=== PATIENT | female | born 1985 | race Caucasian/White ===

== ENCOUNTER 2020-03-19 07:57 | Emergency (ER) | payer SELFPAY ==
[2020-03-19 07:59] VITALS: BP 106/38; PULSE 59; RESP 18; O2SAT 100; BMI 20.5
[2020-03-19] MEDS: ondansetron 2 mg/ML SDV 2 mL 4 MG IVP (08:23)
[2020-03-19] MEDS: sodium chloride 0.9% 500 ML 999 ML IV (08:23)
[2020-03-19 08:26] LABS: Basophils # 0.1 10^3/uL (0.0-0.1); Eosinophils # 0.1 10^3/uL (0.0-0.8); Eosinophils % 1.6 %; Hematocrit 42.6 % (37.0-47.0); Hemoglobin 13.4 g/dL (11.5-15.3); Lymphocytes # 1.6 10^3/uL (0.8-4.8); Lymphocytes % 19.6 %; Mean Corpuscular HGB Conc 31.5 g/dL (30.0-36.0); Mean Corpuscular Hemoglobin 28.5 pg (28.0-34.0); Mean Corpuscular Volume 90.4 fL (81-99); Mean Platelet Volume 10.4 fL (7.4-10.4); Monocytes # 0.4 10^3/uL (0.2-0.9); Monocytes % 4.7 %; Neutrophils # 5.75 10^3/uL (1.8-7.7); Neutrophils % 72.7 %; Nucleated Red Blood Cells % 0 %; Platelet Count 242 10^3/cmm (130-400); Red Blood Count 4.71 10^6/uL (4.1-5.3); Red Cell Distribution Width 14.2 % (12.1-15.1); White Blood Count 7.9 10^3/uL (4.0-10.0)
[2020-03-19 08:41] LABS: Alanine Aminotransferase 12 U/L (0-33); Albumin Level 4.4 g/dL (3.5-5.2); Alkaline Phosphatase 47 IU/L (35-105); Anion Gap 15.8 (5-19); Aspartate Amino Transferase 14 U/L (0-32); Blood Urea Nitrogen 12 mg/dL (6-20); Carbon Dioxide 23 mmol/L (22-29); Chloride 103 mmol/L (98-107); Globulin 2.5 g/dL (1.3-4.6); Glomerular Filtration Rate 83.1 mL/min (90-130); Glucose 131 mg/dL (65-115); Lipase 23 U/L (13-60); Osmolality Calculated 288 mOsm/kg (285-295); Potassium 3.8 mmol/L (3.5-5.1); Sodium 138 mmol/L (136-145); Total Bilirubin 0.3 mg/dL (0.15-1.2); Total Protein 6.9 g/dL (6.6-8.7)
--- NOTE | 2020-03-19 09:05 | ED_ITS ---
HPI - Syncope General: Chief Complaint: Syncope Stated Complaint: Low Bp N/V Time Seen by Provider: 03/19/20 07:58 Source: patient Mode of arrival: ambulatory Limitations: no limitations History of Present Illness: HPI narrative: 34-year-old pleasant female presents to the emergency department due to near syncopal episode. 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 She did experience vomiting x1. She reports on her menstrual cycle, started yesterday, states going through approximately 1 pad every 2-3 hours. Reports menstrual pain, states took ibuprofen for the pain, she has history of syncopal episodes. Nursing staff became concerned as her blood pressure was low. MD complaint: felt faint and almost passed out Onset (ago): minute(s) (30) Prodromal symptoms: lightheaded, nausea/vomiting and other (hot flash) Witnessed: Yes - by Bystander Context: other (while working) Injuries sustained associated with event: none Associated symptoms: Reports abdominal pain (suprapubic), nausea, weakness and other (pelvic pain); Deny chest pain, fever(s), headache(s) or vertigo History: other (syncopal episodes) Treatments prior to arrival: none Review of Systems General: Reports: 10 or more systems reviewed and unremarkable except in HPI and below Const: Reports: chills and fatigue; Denies: fever(s), body aches, change in appetite, malaise or diaphoresis Eyes: Denies: blurry vision or eye redness ENMT: Denies: throat pain, dental pain or disequilibrium Card: Denies: chest pain, palpitations or irregular heart rhythm Resp: Denies: dyspnea, productive cough, non-productive cough or wheezing GI: Reports: abdominal pain (suprapubic), nausea and vomiting (x 1); Denies: early satiety, diarrhea or constipation : Denies: difficulty voiding or dysuria Musc: Denies: neck pain, back pain, joint pain or joint stiffness Skin/Breast: Denies: rash or pruritus Neuro: Denies: headache(s), numbness in extremities, weakness in extremities, sensory changes, difficulty walking, vertigo, confusion, behavioral changes or difficulty communicating thoughts Psych: Denies: anxiety, depression, irritability or difficulty concentrating [place]/Lymph: Denies: easy bruising PFSH ED PFSH: Medical History (Updated 03/19/20 @ 09:54 by RADHA Horton) Syncopal episodes Physical Exam Const: COMMON NORMALS: no acute distress, average body habitus, patient oriented x3, healthy appearing, alert and well nourished GENERAL APPEARANCE: cooperative, comfortable, well kempt, well developed and well hydrated; not anxious and not ill appearing NUTRITIONAL APPEARANCE: thin ORIENTATION/CONSCIOUSNESS: Yes awake, Yes oriented to person, Yes oriented to place and Yes oriented to time HENMT: COMMON NORMALS: normocephalic, atraumatic, Normal external nose present and moist oral mucous membranes HEAD & SCALP: normal to inspection, normocephalic and atraumatic FACE & SINUS: normal facial exam and face symmetric NOSE: Normal external nose present and No nasal polyps present THROAT: posterior oropharynx normal and uvula midline Eye: COMMON NORMALS: Equal, round and reactive pupils present and EOMs intact bilaterally GENERAL EYE: appearance normal, both eyes and all related structures ALIGNMENT: Yes alignment normal PERIORBITAL: periorbital findings normal EYELID: eyelids normal PUPIL: Yes Equal, round and reactive pupils present Neck/C-Spine: COMMON NORMALS: full ROM, no lymphadenopathy and supple GENERAL: Yes normal visual inspection and Yes trachea midline CERVICAL SPINE: Yes cervical ROM normal Lymph: LYMPHATIC: no lymphadenopathy noted Chest: COMMONS NORMALS: normal inspection of the chest and normal palpation of entire chest wall Resp: COMMON NORMALS: normal respiratory effort, No retractions, No use of accessory muscles and clear to auscultation bilaterally EFFORT & INSPECTION: Yes able to speak in complete sentences AUSCULTATION: clear to auscultation bilaterally Cardio: COMMON NORMALS: regular rate, regular rhythm, S1 normal heart sound present, S2 normal heart sound present and Peripheral pulses 2+ throughout RATE: regular rate RHYTHM: regular rhythm HEART SOUNDS: S1 normal heart sound present and S2 normal heart sound present PERIPHERAL PULSES: Peripheral pulses 2+ throughout GI: COMMON NORMALS: Soft to palpation and non-tender INSPECTION: Yes normal to inspection PALPATION: Yes Soft to palpation : COMMON NORMALS: Yes no CVA tenderness BLADDER/KIDNEY EXAM: Yes no CVA tenderness Back/Pelvis: COMMON NORMALS: no CVA tenderness and thoracic and lumbar spine normal to inspection Extremity: COMMON NORMALS: normal to inspection, full ROM and capillary refill normal GENERAL: Yes normal exam except as noted Neuro: COMMON NORMALS: patient oriented x3 and no focal motor deficits SENSORIUM/ORIENTATION: Yes alert, Yes oriented to person, Yes oriented to place and Yes oriented to time Psych: COMMON NORMALS: mental status grossly normal, Normal thought process present and cooperative APPEARANCE: Yes well kempt ACTIVITY/MOTOR BEHAVIOR: Yes appropriate eye contact THOUGHT PROCESS: Normal thought process present Skin: COMMON NORMALS: no rashes or lesions noted and turgor normal GENERAL SKIN EXAM: no rashes or lesions noted and turgor normal Course Vital Signs: Vital signs: Vital Signs Pulse Rate 59 L 03/19/20 07:59 Respiratory Rate 18 03/19/20 07:59 Blood Pressure 106/38 03/19/20 07:59 Pulse Oximetry 100 03/19/20 07:59 MDM - Syncope MDM Narrative: Medical decision making narrative: 34-year-old female patient presents to the emergency department with near syncopal episode that occurred this morning while at work. Initial blood pressure reading 106/38, heart rate 59. EKG with sinus bradycardia, no ectopy/ST deviation. CBC without anemia or leukocytosis, lipase normal, urinalysis without white blood cells or bacteria, currently on menstrual cycle which would explain hematuria; hCG negative, chemistry unremarkable. She was administered a liter of saline during her stay, blood pressure 110/68. She reports feeling better after IV infusion of Tylenol, and is ready to go home, she reports willing to follow-up with her primary care provider in regards to dysmenorrhea. Prescription of ibuprofen was prescribed. Advised to return to the emergency room for worsening/concerning symptoms. She has history of syncopal episodes. Lab Data: Labs: Lab Results 03/19/20 03/19/20 03/19/20 Range/Units 08:16 08:16 09:03 WBC 7.9 (4.0-10.0) 10^3/ uL RBC 4.71 (4.1-5.3) 10^6/u L Hgb 13.4 (11.5-15.3) g/dL Hct 42.6 (37.0-47.0) % MCV 90.4 (81-99) fL MCH 28.5 (28.0-34.0) pg MCHC 31.5 (30.0-36.0) g/dL RDW 14.2 (12.1-15.1) % Plt Count 242 (130-400) 10^3/c mm MPV 10.4 (7.4-10.4) fL Neut % (Auto) 72.7 % Lymph % (Auto) 19.6 % Armstrong % (Auto) 4.7 % Eos % (Auto) 1.6 % Baso % (Auto) 1.0 % Neut # (Auto) 5.75 (1.8-7.7) 10^3/u L Lymph # (Auto) 1.6 (0.8-4.8) 10^3/u L Armstrong # (Auto) 0.4 (0.2-0.9) 10^3/u L Eos # (Auto) 0.1 (0.0-0.8) 10^3/u L Baso # (Auto) 0.1 (0.0-0.1) 10^3/u L Nucleated RBC % (a uto) 0 % Nucleated RBCs # 0.0 /100WBC Sodium 138 (136-145) mmol/L Potassium 3.8 (3.5-5.1) mmol/L Chloride 103 (98-107) mmol/L Carbon Dioxide 23 (22-29) mmol/L Anion Gap 15.8 (5-19) BUN 12 (6-20) mg/dL Creatinine 0.8 (0.5-0.9) mg/dL GFR Calculation 83.1 L (90-130) mL/min Glucose 131 H (65-115) mg/dL Calculated Osmolal ity 288 (285-295) mOsm/k g Calcium 9.0 (8.5-10.5) mg/dL Total Bilirubin 0.3 (0.15-1.2) mg/dL AST 14 (0-32) U/L ALT 12 (0-33) U/L Alkaline Phosphata se 47 (35-105) IU/L Total Protein 6.9 (6.6-8.7) g/dL Albumin 4.4 (3.5-5.2) g/dL Globulin 2.5 (1.3-4.6) g/dL Lipase 23 (13-60) U/L Urine Color (Yellow) Urine Appearance (CLEAR) Urine pH (5-7) Ur Specific Gravit y (1.005-1.030) Urine Protein (Negative) Urine Glucose (UA) (Normal) Urine Ketones (Negative) Urine Blood (Negative) Urine Nitrate (Negative) Urine Bilirubin (Negative) Urine Urobilinogen (Negative) mg/dL Ur Leukocyte Shahida ase (Negative) Urine RBC (0-2) /hpf Urine WBC (0-5) /hpf Ur Squamous Epith Cells (0-5) /hpf Amorphous Sediment Urine Bacteria (NONE) /hpf Urine Mucus /hpf Urine HCG, Qual Negative (Negative) 03/19/20 Range/Units 09:03 WBC (4.0-10.0) 10^3/ uL RBC (4.1-5.3) 10^6/u L Hgb (11.5-15.3) g/dL Hct (37.0-47.0) % MCV (81-99) fL MCH (28.0-34.0) pg MCHC (30.0-36.0) g/dL RDW (12.1-15.1) % Plt Count (130-400) 10^3/c mm MPV (7.4-10.4) fL Neut % (Auto) % Lymph % (Auto) % Armstrong % (Auto) % Eos % (Auto) % Baso % (Auto) % Neut # (Auto) (1.8-7.7) 10^3/u L Lymph # (Auto) (0.8-4.8) 10^3/u L Armstrong # (Auto) (0.2-0.9) 10^3/u L Eos # (Auto) (0.0-0.8) 10^3/u L Baso # (Auto) (0.0-0.1) 10^3/u L Nucleated RBC % (a uto) % Nucleated RBCs # /100WBC Sodium (136-145) mmol/L Potassium (3.5-5.1) mmol/L Chloride (98-107) mmol/L Carbon Dioxide (22-29) mmol/L Anion Gap (5-19) BUN (6-20) mg/dL Creatinine (0.5-0.9) mg/dL GFR Calculation (90-130) mL/min Glucose (65-115) mg/dL Calculated Osmolal ity (285-295) mOsm/k g Calcium (8.5-10.5) mg/dL Total Bilirubin (0.15-1.2) mg/dL AST (0-32) U/L ALT (0-33) U/L Alkaline Phosphata se (35-105) IU/L Total Protein (6.6-8.7) g/dL Albumin (3.5-5.2) g/dL Globulin (1.3-4.6) g/dL Lipase (13-60) U/L Urine Color Yellow (Yellow) Urine Appearance Clear (CLEAR) Urine pH 5.0 (5-7) Ur Specific Gravit y 1.020 (1.005-1.030) Urine Protein Neg (Negative) Urine Glucose (UA) Norm (Normal) Urine Ketones Negative (Negative) Urine Blood 3+ H (Negative) Urine Nitrate Negative (Negative) Urine Bilirubin Neg (Negative) Urine Urobilinogen 1 H (Negative) mg/dL Ur Leukocyte Shahida ase Negative (Negative) Urine RBC 15-25 H (0-2) /hpf Urine WBC None (0-5) /hpf Ur Squamous Epith Cells 5-10 H (0-5) /hpf Amorphous Sediment Not Reportable Urine Bacteria 1+ H (NONE) /hpf Urine Mucus 3+ /hpf Urine HCG, Qual (Negative) EKG Data^: EKG 1: EKG interpretation date: 03/19/20 EKG interpretation time: 09:28 Prior EKG tracings: not available for review Other EKG Comments: Ventricular rate 54, sinus bradycardia, borderline ECG Discharge Plan Discharge Patient Disposition: Home Clinical Impression: Near syncope, Vaso vagal episode, Dysmenorrhea Condition: Stable Prescriptions: No Action sertraline 50 mg tablet 50 mg PO DAILY@2200 RF: 0 Discharge Orders: Discharge ED (Routine); Ordered 03/19/20 Ordered By: Micaela Cabrera Referrals: Jennifer Ventura FNP [Primary Care Provider] - Discharge Diet: Usual diet Discharge Activity: Limit activity as instructed Patient Instructions: Dysmenorrhea (ED), Hypotension (ED), Abdominal Pain (ED), Near Syncope (ED) Activity Restrictions/Additional Instructions: Drink plenty of fluid, rest today at home Follow-up with your primary care provider for dysmenorrhea options Return to the emergency department if you develop worsening symptoms such as continued near syncopal episodes, chest pain or shortness of breath Stand Alone Forms: Work/School Release Coding Level of Care 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
--- NOTE | 2020-03-19 09:11 | ECG_ITS ---
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
[2020-03-19 10:05] LABS: Add Urine Microscopic? YES; Bilirubin Urine Neg (Negative); Blood Urine 3+ (Negative); Glucose Urine UA Norm (Normal); Ketones Urine Negative (Negative); Leukocyte Esterase Urine Negative (Negative); Nitrate Urine Negative (Negative); Protein Urine Neg (Negative); Urine Appearance Clear (CLEAR); Urine Color Yellow (Yellow); Urobilinogen Urine 1 mg/dL (Negative)
[2020-03-19 10:25] LABS: Add Urine Culture? Yes; Bacteria Urine 1+ /hpf; Mucus Urine 3+ /hpf; RBC Urine 15-25 /hpf (0-2)
[2020-03-19 10:38] VITALS: BP 106/65; PULSE 68; RESP 16; O2SAT 97
== END 2020-03-19 10:40 | disposition home or self-care (01) ==
PROVIDERS: Emergency Provider Nurse Practitioner Family; PCP Nurse Practitioner Family
DX: R55 Syncope and collapse (principal); N94.6 Dysmenorrhea, unspecified
CPT/HCPCS: 12345; 80053; 81001; 81025; 83690; 85025; 87086; 93005; 96374; 96375; 99283; J0131; J2405; J7040

== ENCOUNTER → 2021-03-04 08:45 | Outpatient (BNVA) | payer OTHER, SELFPAY | PROVIDERS: PCP Nurse Practitioner Family; Visit Provider Nurse Practitioner Family | DX: R53.83 Other fatigue (principal); Z12.4 Encounter for screening for malignant neoplasm of cervix; Z13.220 Encounter for screening for lipoid disorders | CPT/HCPCS: 80053; 80061; 84443; 85025; 88175 ==

== ENCOUNTER → 2021-03-06 15:02 | Outpatient (BNVA) | payer OTHER, SELFPAY | PROVIDERS: PCP Nurse Practitioner Family; Visit Provider Nurse Practitioner Family | DX: Z30.9 Encounter for contraceptive management, unspecified (principal) | CPT/HCPCS: 81025 ==

== ENCOUNTER → 2022-08-24 09:56 | Outpatient (BNVA) | payer SELFPAY | PROVIDERS: PCP Nurse Practitioner Family; Visit Provider Nurse Practitioner Family | DX: F41.9 Anxiety disorder, unspecified (principal); Z79.899 Other long term (current) drug therapy; Z13.220 Encounter for screening for lipoid disorders | CPT/HCPCS: 80053; 80061 ==

== ENCOUNTER → 2023-06-03 08:32 | Outpatient (BNVA) | payer SELFPAY | PROVIDERS: PCP Nurse Practitioner Family; Visit Provider Nurse Practitioner Family | DX: Z79.899 Other long term (current) drug therapy (principal); F32.A Depression, unspecified | CPT/HCPCS: 80053 ==

== ENCOUNTER → 2023-08-24 10:26 | Outpatient (BNVA) | payer SELFPAY | PROVIDERS: PCP Nurse Practitioner Family; Visit Provider Registered Nurse Neonatal Intensive Care | DX: J02.9 Acute pharyngitis, unspecified (principal); H66.001 Acute suppurative otitis media without spontaneous rupture of ear drum, right ear | CPT/HCPCS: 87880 ==